=== PATIENT | female | born 1990 | race African-American/Black ===

== ENCOUNTER 2019-06-25 13:19 | Emergency (ER) | payer SELFPAY ==
[~2019-06-25] VITALS: Ht 170.2 cm; Wt 86.0 kg
[2019-06-25] MEDS ORDERED: HYDROCODONE/ACETAMINOPHEN 5/325MG TABLET PO ONE (13:45)
[2019-06-25 15:19] VITALS: BP 120/71
== END 2019-06-25 15:21 | disposition home or self-care (01) ==
LOC: ER 13:57
DX: S63.502A Unspecified sprain of left wrist, initial encounter (principal); V49.49XA Driver injured in collision with other motor vehicles in traffic accident, initial encounter; Y93.89 Activity, other specified; Y92.410 Unspecified street and highway as the place of occurrence of the external cause; R03.0 Elevated blood-pressure reading, without diagnosis of hypertension
CPT/HCPCS: 73110; 99283; A4565